=== PATIENT | male | born 1950 | race Caucasian/White ===

== ENCOUNTER 2017-05-07 14:39 | Emergency (ER) | payer OTHER, BC ==
[~2017-05-07] VITALS: Ht 167.6 cm; Wt 70.6 kg
[~2017-05-07 14:39] MED LIST: CELEBREX200 MG PO; LOSARTAN-HCTZ1 EAC1 PO; PERCOCET 5/31 TABLET PO; SERTRALINE HCL50 MG PO; TORADOL10 MG PO; TRAMADOL HCL50 MG PO; ZOFRAN4 MG PO
[2017-05-07 15:03] VITALS: BP 146/81
== END 2017-05-07 16:59 | disposition home or self-care (01) ==
LOC: EME 14:39
PROC: 3E0234Z Introduction of Serum, Toxoid and Vaccine into Muscle, Percutaneous Approach (ICD-10-PCS; principal; 2017-05-07)
DX: S80.812A Abrasion, left lower leg, initial encounter (principal); W22.8XXA Striking against or struck by other objects, initial encounter; Z23 Encounter for immunization; Z48.00 Encounter for change or removal of nonsurgical wound dressing
CPT/HCPCS: 99281; 99284